=== PATIENT | female | born 1945 | race Caucasian/White ===

== ENCOUNTER 2018-03-28 12:57 | Emergency (ER) | payer OTHER ==
[2018-03-28] MEDS ORDERED: IBUPROFEN 200 MG TAB PO ONE (14:07)
[2018-03-28 14:08] VITALS: TEMP 98.2; O2SAT 95
--- NOTE | 2018-03-28 14:10 | ED.PDOC ---
History of Present Illness - General Chief Complaint: Lower Extremity Injury Stated Complaint: left foot pain Time Seen by Provider: 03/28/18 14:05 Source: patient Exam Limitations: no limitations Additional Information: INVERSION INJURY LEFT ANKLE, YESTERDAY, FELL ON A HOLE. NOW C/O SWELLING AND PAIN TO THE LEFT ANKLE - History of Present Illness Occurred: yesterday Pain - Lower Extremity: moderate: Left Ankle, Left Foot Method of Injury: twisted Improving Factors: nothing Worsening Factors: movement Allergies/Adverse Reactions: Allergies Codeine Allergy (Verified 03/28/18 14:08) Review of Systems - Review of Systems Constitutional: States: no symptoms reported EENTM: States: no symptoms reported Respiratory: States: no symptoms reported Cardiology: States: no symptoms reported Gastrointestinal/Abdominal: States: no symptoms reported Genitourinary: States: no symptoms reported Musculoskeletal: States: joint pain, joint swelling Skin: States: no symptoms reported Neurological: States: no symptoms reported Endocrine: States: no symptoms reported Hematologic/Lymphatic: States: no symptoms reported Past Medical History (General) - Patient Medical History Hx Congestive Heart Failure: Yes - [place] Hx Hypertension: Yes Surgical History: appendectomy - Vaccination History Hx Influenza Vaccination: No Hx Pneumococcal Vaccination: Yes - Social History Hx Tobacco Use: No Hx Alcohol Use: No Hx Substance Use Treatment: No - Female History Patient is a Female of Child Bearing Age (10 -59 yrs old): No Family Medical History - Family History Mother Family History: Unknown Physical Exam - Physical Exam General Appearance: Alert, Well Developed, Well Groomed, Well Hydrated Eyes, Ears, Nose, Throat: PERRL/EOMI, normal ENT inspection Neck: non-tender, full range of motion, supple Cardiovascular/Respiratory: regular rate, rhythm, no M/R/G, normal peripheral pulses, no JVD, normal breath sounds Gastrointestinal/Abdominal: non-tender, no organomegaly, no hernia Back: normal inspection, no CVA tenderness, no vertebral tenderness Thigh/Hip: normal inspection Leg: normal inspection Knee: normal inspection Ankle: deformity, soft tissue tenderness, swelling Foot: normal inspection, non-tender, no evidence of injury, normal ROM Neuro/Tendon: withdraws to pain Mental Status: alert, oriented x 3, depressed affect Progress - Results/Orders Results/Orders: x rays of the left ankle and left foot are negative for fracture or dislocation. Departure - Departure Clinical Impression: Left ankle sprain Qualifiers: Encounter type: initial encounter Involved ligament of ankle: calcaneofibular ligament Qualified Code(s): S93.412A - Sprain of calcaneofibular ligament of left ankle, initial encounter Time of Disposition: 14:57 Disposition: Discharge to Home or Self Care Condition: Good Departure Forms: ED Discharge - Pt. Copy, Patient Portal Self Enrollment Instructions: Ankle Sprain (DC) Activity: increase activity as tolerated
--- NOTE | 2018-03-28 14:42 | RAD ---
EXAM DESCRIPTION: Ankle,Left 3 Views CLINICAL HISTORY: PAINFUL ANKLE, INVERSION INJURY COMPARISON: None FINDINGS: 3 view(s) submitted. No fracture or dislocation is identified. Bone marrow attenuation is unremarkable. No radiopaque foreign body is identified. IMPRESSION: No acute fracture or dislocation. Electronically signed by: Parish Henderson 03/28/2018 2:41 PM CDT
--- NOTE | 2018-03-28 14:43 | RAD ---
EXAM DESCRIPTION: Foot,Left 3 Views CLINICAL HISTORY: PAINFUL ANKLE, INVERSION INJURY COMPARISON: None FINDINGS: 3 view(s) submitted. No fracture or dislocation is identified. Bone marrow attenuation is unremarkable. No radiopaque foreign body is identified. IMPRESSION: No acute fracture or dislocation. Electronically signed by: Parish Henderson 03/28/2018 2:42 PM CDT
[2018-03-28 15:19] VITALS: BP 161/92
== END 2018-03-28 15:10 | disposition home or self-care (01) ==
LOC: ER 12:57
DX: S93.412A Sprain of calcaneofibular ligament of left ankle, initial encounter (principal); I11.0 Hypertensive heart disease with heart failure; I50.9 Heart failure, unspecified; I25.2 Old myocardial infarction; W17.2XXA Fall into hole, initial encounter; Y92.9 Unspecified place or not applicable